=== PATIENT | female | born 1945 | race Caucasian/White ===

== ENCOUNTER 2017-07-15 12:15 | Inpatient (IN) | payer MEDICARE ==
[~2017-07-15] VITALS: Ht 152.4 cm; Wt 68.0 kg
[~2017-07-15 12:15] MED LIST: BLOO-1764 MC; BLOO-1775 MC; HYDR-4225 PO; INSU100I5 SQ; IPRA4AER IH; LANC-1295 XX; LEV125 PO; LISI20TA29 PO; LORA-630 PO; METF-420 PO; SERT-181 PO; SIMV-54 PO
[2017-07-15] MEDS ORDERED: methylPREDNIS SUCC 125 MG/2ML IVP ONE (12:30)
[2017-07-15] MEDS ORDERED: ALBUTEROL/IPRATROPIUM 3 ML NEB NEB ONE (12:30)
--- NOTE | 2017-07-15 12:51 | EKG ---
[place] [facility] [place] NAME: ADEN MELGAR : [id number] MR: [id number] V: [id number] EXAM DATE: ORDERING PHYSICIAN: BENNY HWANG TECHNOLOGIST: JUAN CARLOS Marshall Reason : RESP PROBLEMS Blood Pressure : / mmHG Vent. Rate : 088 BPM Atrial Rate : 088 BPM P-R Int : 150 ms QRS Dur : 074 ms QT Int : 410 ms P-R-T Axes : 062 043 061 degrees QTc Int : 496 ms Sinus rhythm with premature supraventricular complexes Possible Left atrial enlargement Anterior infarct , age undetermined Diffuse T flattening No previous ECGs available Confirmed by HILLARY SUTTON ([id number]) on 07/16/2017 10:10:21 PM Referred By: JAIDEN Confirmed By:HILLARY SUTTON
[2017-07-15 12:59] LABS: PLATELET COUNT, AUTOMATED 110 K/uL (150-450)
--- NOTE | 2017-07-15 13:20 | ER Report ---
History and Physical Time Seen By MD: 12:20 Hx. of Stated Complaint: PATIENT STATES THAT SHE HAS BEEN FEELING SHORT OF BREATH FOR A COUPLE WEEKS NOW ; PT'S SPO2 ON ROOM AIR WAS 83%; PATIENT WAS PLACED ON 3 LT OF OXYGEN. HPI/ROS CHIEF COMPLAINT: Shortness of breath HISTORY OF PRESENT ILLNESS: 72-year-old female long history of smoking multiple packs a day for the last 50+ years is does not use supplemental oxygen has an inhaler does not careful diagnosis COPD however last 2 or 3 weeks and getting worse and shortness of breath and exertional dyspnea still smoking daily patient has no chest pain at this time no abdominal pain nausea vomiting diarrhea fever chills nonproductive cough worse in the morning REVIEW OF SYSTEMS: Respiratory: Cough with shortness of breath Cardiovascular: No chest pain, no palpitations. Gastrointestinal: No vomiting, no abdominal pain. Musculoskeletal: No back pain. Remainder of the 14 system rev: Yes Allergies: Coded Allergies: No Known Drug Allergies (Unverified , 07/15/17) Home Meds Active Scripts Insulin Detemir (Levemir Flextouch) 100 Unit/1 Ml Insuln.pen, 14 UNIT SQ BID, # 3 BOX 11 Refills 14 units in am and pm Prov:SUE DAY MD 06/25/17 Levothyroxine Sodium (LEVOTHYROXINE SODIUM) 0.125 Mg Tab, 1 TAB PO QDAY, #90 TAB 11 Refills Prov:SUE DAY MD 06/25/17 Sertraline Hcl (SERTRALINE HCL) 100 Mg Tablet, 1 TAB PO QDAY, #90 TAB 1 Refill Prov:SUE DAY MD 04/24/17 Blood-Glucose Meter (FREESTYLE LITE METER) 1 Each Kit, EACH MC, #1 Prov:SUE DAY MD 04/09/17 Lancets (FREESTYLE LANCETS) 1 Each Each, EACH XX QDAY, #1 3 Refills Prov:SUE DAY MD 04/09/17 Blood Sugar Diagnostic (FREESTYLE TEST STRIPS) 1 Each Strip, 1 EACH MC QDAY for 90 Days, #100 STRIP 3 Refills Alternating time of day checking glucose. Prov:SUE DAY MD 04/09/17 Reported Medications Ipratropium/Albuterol Sulfate (COMBIVENT RESPIMAT INHAL SPRAY) 4 Gm Aer.w.adap, 1 EACH IH QID 04/09/17 Lisinopril (LISINOPRIL) 20 Mg Tablet, 1 TAB PO QDAY, TAB 04/09/17 Hydroxyzine Hcl (HYDROXYZINE HCL) 25 Mg Tablet, 1 TAB PO TID Y for ITCHING 04/09/17 Simvastatin (SIMVASTATIN) 40 Mg Tablet, 40 MG PO HS, TAB 04/09/17 Lorazepam (LORAZEPAM) 0.5 Mg Tablet, 1 TAB PO DAILY Y for ANXIETY 04/09/17 Metformin Hcl (METFORMIN HCL) 1,000 Mg Tablet, 1 TAB PO BID, TAB 04/09/17 Reviewed Nurses Notes: Yes Old Medical Records Reviewed: Yes Smoking Status: Current: Every Day Smoker Exposure to Second Hand Smoke?: Yes Constitutional Vital Sign - Last 24 Hours 07/15/17 07/15/17 07/15/17 07/15/17 12:19 12:23 12:30 12:30 Temp 97.6 Pulse 94 Resp 17 20 B/P (MAP) 187/109 (135) 187/109 163/98 (119) Pulse Ox 83 83 93 O2 Delivery Room Air Room Air Nasal Cannula O2 Flow Rate 2.0 07/15/17 07/15/17 07/15/17 07/15/17 12:30 12:43 12:48 13:00 Pulse 87 87 Resp 12 12 B/P (MAP) 157/92 (113) O2 Flow Rate 3.0 07/15/17 07/15/17 07/15/17 07/15/17 13:15 13:30 13:45 14:00 Pulse 87 83 Resp 16 13 B/P (MAP) 157/99 (118) 170/96 (120) Pulse Ox 95 95 O2 Delivery Nasal Cannula Nasal Cannula O2 Flow Rate 3 3 07/15/17 07/15/17 07/15/17 15:00 15:05 15:31 Pulse 88 Resp 21 B/P (MAP) 189/143 (158) 159/126 (137) Pulse Ox 95 Physical Exam General Appearance: [The patient is alert, has no immediate need for airway protection and no current signs of toxicity.] [ ] Eyes: Pupils equal and round no injection. Respiratory: Chest is non tender, lungs are clear to auscultation. Distant breath sounds Cardiac: regular rate and rhythm [ ] Gastrointestinal: Abdomen is soft and non tender, no masses, bowel sounds normal. Musculoskeletal: Neck: Neck is supple and non tender. Extremities have full range of motion and are non tender. Skin: No rashes or lesions. [ ] DIFFERENTIAL DIAGNOSIS: After history and physical exam differential diagnosis was considered for COPD exacerbation CHF exacerbation cardial infarction Polygram black Medical Decision Making Data Points Result Diagram: 07/15/17 1235 07/15/17 1235 Laboratory Hematology Test 07/15/17 12:35 07/15/17 12:54 Red Blood Count 4.46 M/uL (4.17-5.56) Mean Corpuscular Volume 79.0 fL (80.0-96.0) Mean Corpuscular Hemoglobin 25.4 pg (26.0-33.0) Mean Corpuscular Hemoglobin Concent 32.1 g/dL (32.0-36.0) Red Cell Distribution Width 17.7 % (11.5-14.5) Mean Platelet Volume 9.8 fL (7.2-11.1) Neutrophils (%) (Auto) 75.2 % (39.4-72.5) Lymphocytes (%) (Auto) 15.2 % (17.6-49.6) Monocytes (%) (Auto) 8.3 % (4.1-12.4) Eosinophils (%) (Auto) 0.7 % (0.4-6.7) Basophils (%) (Auto) 0.6 % (0.3-1.4) Nucleated RBC Relative Count (auto) 0.0 /100WBC Neutrophils # (Auto) 4.0 K/uL (2.0-7.4) Lymphocytes # (Auto) 0.8 K/uL (1.3-3.6) Monocytes # (Auto) 0.4 K/uL (0.3-1.0) Eosinophils # (Auto) 0.0 K/uL (0.0-0.5) Basophils # (Auto) 0.0 K/uL (0.0-0.1) Nucleated RBC Absolute Count (auto) 0.00 K/uL D-Dimer Quantitative (PE/DVT) 1.25 ug/ml (0-0.50) Sodium Level 141 mmol/L (137-145) Potassium Level 3.6 mmol/L (3.5-5.0) Chloride Level 106 mmol/L (98-107) Carbon Dioxide Level 23 mmol/L (22-31) Blood Urea Nitrogen 12 mg/dl (7-18) Creatinine 0.60 mg/dl (0.52-1.04) Glomerular Filtration Rate Calc > 60.0 Random Glucose 131 mg/dl (75-110) Calcium Level 8.8 mg/dl (8.4-10.2) Total Bilirubin 0.9 mg/dl (0.2-1.3) Aspartate Amino Transf (AST/SGOT) 35 U/L (0-35) Alanine Aminotransferase (ALT/SGPT) 43 U/L (0-56) Alkaline Phosphatase 97 U/L (0-126) Troponin I 0.016 ng/ml B-Type Natriuretic Peptide 361 pg/ml (0-100) Total Protein 6.7 gm/dl (6.3-8.2) Albumin 3.7 g/dl (3.5-5.0) Blood Gas Puncture Site Right radial Blood Gas Patient Temperature 97.6 DEGREES Arterial Blood pH 7.42 (7.35-7.45) Arterial Blood Partial Pressure CO2 34 mmHg (32-37) Arterial Blood Partial Pressure O2 67 mmHg (60-80) Arterial Blood HCO3 22 mmol/L (20-26) Arterial Blood Oxygen Saturation 94 % (92-100) Arterial Blood Base Excess -3.0 mmol/L Solitario Test Acceptable Oxygen Liters/Minute 3liters Chemistry Test 07/15/17 12:35 07/15/17 12:54 White Blood Count 5.4 k/uL (4.5-11.0) Red Blood Count 4.46 M/uL (4.17-5.56) Hemoglobin 11.3 g/dL (12.0-16.0) Hematocrit 35.2 % (34.0-47.0) Mean Corpuscular Volume 79.0 fL (80.0-96.0) Mean Corpuscular Hemoglobin 25.4 pg (26.0-33.0) Mean Corpuscular Hemoglobin Concent 32.1 g/dL (32.0-36.0) Red Cell Distribution Width 17.7 % (11.5-14.5) Platelet Count 110 K/uL (150-450) Mean Platelet Volume 9.8 fL (7.2-11.1) Neutrophils (%) (Auto) 75.2 % (39.4-72.5) Lymphocytes (%) (Auto) 15.2 % (17.6-49.6) Monocytes (%) (Auto) 8.3 % (4.1-12.4) Eosinophils (%) (Auto) 0.7 % (0.4-6.7) Basophils (%) (Auto) 0.6 % (0.3-1.4) Nucleated RBC Relative Count (auto) 0.0 /100WBC Neutrophils # (Auto) 4.0 K/uL (2.0-7.4) Lymphocytes # (Auto) 0.8 K/uL (1.3-3.6) Monocytes # (Auto) 0.4 K/uL (0.3-1.0) Eosinophils # (Auto) 0.0 K/uL (0.0-0.5) Basophils # (Auto) 0.0 K/uL (0.0-0.1) Nucleated RBC Absolute Count (auto) 0.00 K/uL D-Dimer Quantitative (PE/DVT) 1.25 ug/ml (0-0.50) Glomerular Filtration Rate Calc > 60.0 Calcium Level 8.8 mg/dl (8.4-10.2) Total Bilirubin 0.9 mg/dl (0.2-1.3) Aspartate Amino Transf (AST/SGOT) 35 U/L (0-35) Alanine Aminotransferase (ALT/SGPT) 43 U/L (0-56) Alkaline Phosphatase 97 U/L (0-126) Troponin I 0.016 ng/ml B-Type Natriuretic Peptide 361 pg/ml (0-100) Total Protein 6.7 gm/dl (6.3-8.2) Albumin 3.7 g/dl (3.5-5.0) Blood Gas Puncture Site Right radial Blood Gas Patient Temperature 97.6 DEGREES Arterial Blood pH 7.42 (7.35-7.45) Arterial Blood Partial Pressure CO2 34 mmHg (32-37) Arterial Blood Partial Pressure O2 67 mmHg (60-80) Arterial Blood HCO3 22 mmol/L (20-26) Arterial Blood Oxygen Saturation 94 % (92-100) Arterial Blood Base Excess -3.0 mmol/L Solitario Test Acceptable Oxygen Liters/Minute 3liters Coagulation Test 07/15/17 12:35 D-Dimer Quantitative (PE/DVT) 1.25 ug/ml ED Course/Re-evaluation ED Course ED clinical course medical decision-making 9-year-old female history of a 60+ pack year smoker comes in with an obvious COPD exacerbation however elevated d- dimer and CT angiogram subsequent demonstrated pulmonary 2 hypertension diagnosis is well as central lobular emphysema and a new right lower lobe developing infiltrate atelectasis pulmonary edema patient be admitted accordingly Decision to Disposition Date: Jul 15, 2017 Decision to Disposition Time: 15:44 Depart Departure Latest Vital Signs Vital Signs Date Time Temp Pulse Resp B/P (MAP) Pulse Ox O2 Delivery O2 Flow Rate FiO2 07/15/17 15:31 159/126 (137) 07/15/17 15:05 88 21 95 07/15/17 13:45 Nasal Cannula 3 07/15/17 12:23 97.6 Impression: Primary Impression: Pulmonary arterial hypertension Additional Impressions: Emphysema Pneumonia Condition: Improved Disposition: Admitted from ER Referrals: SUE DAY MD (PCP) Problem Qualifiers BENNY HWANG MD Jul 15, 2017 13:20
[2017-07-15] MEDS ORDERED: IOPAMIDOL 76% 75 ML INFUS BTL 75 ML ONE (13:43)
[2017-07-15] MEDS ORDERED: NS 0.9% 50 ML VIAL 100 ML ONE (13:43)
--- NOTE | 2017-07-15 14:45 | RADIOLOGY IMAGING REPORT ---
FACILITY: [facility] PATIENT NAME: Anneliese Magana : 1945 MR: [id number] V: [id number] EXAM DATE: ORDERING PHYSICIAN: BENNY HWANG TECHNOLOGIST: Location: [facility] - [place] Patient: Anneliese Magana : 1945 Visit/Account:[id number] Date of Sevice: 07/15/2017 Exam type: CHEST PA AND LAT History: sob Comparison: None. Findings: The cardiac silhouette is markedly enlarged. This blunting of the right costophrenic angle which may be secondary to small right pleural effusion versus pleural thickening. This platelike atelectasis versus scarring in the lung bases. The pulmonary vascularity appears engorged. This osteopenia the visualized bones. IMPRESSION: 1. Cardiac silhouette is markedly enlarged Blunted right costophrenic angle consistent with small pleural effusion versus pleural thickening Platelike atelectasis versus scarring in the lung bases Pulmonary vascularity appears engorged concerning for pulmonary edema Report Dictated By: Felecia Hunt MD at 07/15/2017 2:38 PM Report E-Signed By: Felecia Hunt MD at 07/15/2017 2:41 PM WSN:[email or web address]
--- NOTE | 2017-07-15 15:08 | RADIOLOGY IMAGING REPORT ---
FACILITY: [facility] - [place] PATIENT NAME: Anneliese Magana : 1945 MR: [id number] V: [id number] EXAM DATE: ORDERING PHYSICIAN: BENNY HWANG TECHNOLOGIST: Location: [facility] Patient: Anneliese Magana : 1945 Visit/Account:[id number] Date of Sevice: 07/15/2017 CTA CHEST WW/O CNTR (PULM ANG) HISTORY: Shortness of breath x2 weeks, cough, current one pack per day smoker ADDITIONAL HISTORY: None. TECHNIQUE: CTA chest with intravenous contrast. Axial imaging acquired following administration of IV contrast timed for maximum opacification of the pulmonary arterial vasculature. Slab 3-D MIP ok nstructed images were also created for further evaluation and interpretation. Reconstruction of the [facility] [place] data set includes multiplanar 2-D in the sagittal and coronal planes and 3-D reconstructed gillian nal slab MIP series. 3-D images were created by the technologist. Dose Lowering Technique One of the following dose optimization techniques was utilized in the performance of this exam: Autom ated exposure control; adjustment of the mA and/or kV according to the patient's size; or use of an i terative reconstruction technique. Specific details can be referenced in the facility's radiology C T exam operational policy. CONTRAST: 75 mL Isovue-370 COMPARISON: None. FINDINGS: Lungs/pleura: There is centrilobular emphysema with an upper lobe predominance. There is a small po sterior layering right pleural effusion and adjacent airspace consolidation in the right lower lobe. Very mild linear stranding in the left lower lobe is also evident. Heart/vessels: There is no evidence of pulmonary emboli. The pulmonary trunk and main pulmonary art eries are mildly prominent. There is a small pericardial effusion. There are vascular calcification s in the thoracic aorta and branch vessels including the coronary arteries. Mediastinum/lymph nodes: Negative. Visualized upper abdomen: There is a lobular contour to the liver and hypertrophy of the caudate lob e which can be seen with cirrhosis. There is mild periportal adenopathy. A inside sales representative node hamilton ures 1.6 x 1.1 cm Bones/soft tissues: There is a mild to moderate compression fracture of T4 Additional findings: None IMPRESSION: There is no evidence of pulmonary emboli Central pulmonary arteries appear mildly prominent which can be seen with pulmonary arterial hyperten bhavani Small pericardial effusion Centrilobular emphysema with an upper lobe predominance Small posterior layering right pleural effusion with adjacent airspace consolidation of the right low er lobe which could represent atelectasis or developing infiltrate. Very mild linear stranding left lower lobe is also evident There is a cirrhotic appearance to the liver Mild periportal adenopathy Mild to moderate compression fracture of T4 Report Dictated By: Felecia Hunt MD at 07/15/2017 2:52 PM Report E-Signed By: Felecia Hunt MD at 07/15/2017 3:03 PM BRYN:[email or web address]
[2017-07-15] MEDS ORDERED: cloNIDine HCL 0.1 MG TAB PO ONE (15:30)
[2017-07-15] MEDS ORDERED: LEVOFLOXACIN/D5W*500 MG/100 ML 100 ML IVPB ONE (15:30)
[2017-07-15 17:24] VITALS: BP 171/96
[2017-07-15] MEDS ORDERED: ALBUTEROL/IPRATROPIUM 3 ML NEB NEB PRN (17:55)
[2017-07-15] MEDS ORDERED: ONDANSETRON 4 MG/2 ML VIAL IVP PRN (17:55)
[2017-07-15] MEDS ORDERED: ALBUTEROL SULFATE 90 MCG/ACT 8.5 GM HNH INH PRN (17:55)
[2017-07-15] MEDS ORDERED: ACETAMINOPHEN 325 MG TAB PO PRN (17:55)
[2017-07-15] MEDS ORDERED: hydrOXYzine 25 MG TAB PO PRN (17:55)
[2017-07-15] MEDS: NS(*) 0.9% 1000 ML BAG 1,000 ML IV PRN (18:35)
--- NOTE | 2017-07-15 18:52 | History & Physical ---
History of Present Illness Chief Complaint gradual worsening of dyspnea over few weeks and presented with acute SOB History of Present Illness Mrs. Magana is a 72 y.o. female with PMH of HTN, DM-II, Dyslipidemia, Hypothyroidism, Depression and long standing h/o smoking 1-2 PPD over 50 years, She currently smokes 1ppd. She has been having VALLEJO and today she presented with acute exacerbation of dyspnea with low oxygen saturation. During the ER evaluation she found to have low oxygen saturation 83% and she was in acute exacerbation of COPD. Her CTA revealed chronic emphysematic changes of the lungs but negative for APE. She also demonstrated pulmonary arterial hypertension. RLL revealed early infiltrates vs atelectasis. She denies any cough, hemoptysis, fever and no WBC on her CBC test. I discussed the case with the ER-MD and admitted her for further evaluation and management. History Home Meds Active Scripts Insulin Detemir (Levemir Flextouch) 100 Unit/1 Ml Insuln.pen, 14 UNIT SQ BID, # 3 BOX 11 Refills 14 units in am and pm Prov:SUE DAY MD 06/25/17 Levothyroxine Sodium (LEVOTHYROXINE SODIUM) 0.125 Mg Tab, 1 TAB PO QDAY, #90 TAB 11 Refills Prov:SUE DAY MD 06/25/17 Sertraline Hcl (SERTRALINE HCL) 100 Mg Tablet, 1 TAB PO QDAY, #90 TAB 1 Refill Prov:SUE DAY MD 04/24/17 Blood-Glucose Meter (FREESTYLE LITE METER) 1 Each Kit, EACH MC, #1 Prov:SUE DAY MD 04/09/17 Lancets (FREESTYLE LANCETS) 1 Each Each, EACH XX QDAY, #1 3 Refills Prov:SUE DAY MD 04/09/17 Blood Sugar Diagnostic (FREESTYLE TEST STRIPS) 1 Each Strip, 1 EACH MC QDAY for 90 Days, #100 STRIP 3 Refills Alternating time of day checking glucose. Prov:SUE DAY MD 04/09/17 Reported Medications Ipratropium/Albuterol Sulfate (COMBIVENT RESPIMAT INHAL SPRAY) 4 Gm Aer.w.adap, 1 EACH IH QID 04/09/17 Lisinopril (LISINOPRIL) 20 Mg Tablet, 1 TAB PO QDAY, TAB 9/21/17 Hydroxyzine Hcl (HYDROXYZINE HCL) 25 Mg Tablet, 1 TAB PO TID Y for ITCHING 04/09/17 Simvastatin (SIMVASTATIN) 40 Mg Tablet, 40 MG PO HS, TAB 04/09/17 Lorazepam (LORAZEPAM) 0.5 Mg Tablet, 1 TAB PO DAILY Y for ANXIETY 04/09/17 Metformin Hcl (METFORMIN HCL) 1,000 Mg Tablet, 1 TAB PO BID, TAB 04/09/17 Allergies: Coded Allergies: No Known Drug Allergies (Unverified , 07/15/17) Patient History: FH: Alzheimers disease MOTHER, , Age:83 FH: COPD (chronic obstructive pulmonary disease) BROTHER OR SISTER Sister FH: cancer Sister, , Age:60 (diffusely metastisized) FH: diabetes mellitus MOTHER, , Age:83 Sister, Age:50 FH: hypertension Brother, , Age:69 FH: lung cancer FATHER, , Age:74 FHx: alcoholism FATHER, , Age:74 Brother, , Age:69 Smoking Status: Current: Every Day Smoker Exposure to Second Hand Smoke?: Yes Caffeine Intake: Coffee Caffeine/Cups Per Day: 3 Hx Alcohol Use: No Social Drug Use: Never Review of Systems Constitutional: No Fever, No Weight Loss, No Weight Gain, No Chills, No Night Sweats Neurological: Weakness, No Syncope, No Confusion, No Dizziness ENT: No Sinus Congestion, No Sore Throat Cardiovascular: No Chest Pain, No Palpitations Respiratory: Shortness of Breath, Cough, Wheezing (few rales at the bases and low air entry) Gastrointestinal: No Nausea, No Vomiting, No Diarrhea, No Dysphagia, No Constipation, No Hematemesis, No Abdominal Pain Genitourinary: No Dysuria, No Hematuria Musculoskeletal: No Pain, No Sprain, No Strain Psychiatric: No Depression, No Anxiety Exam Vital Signs Vital Signs Date Time Temp Pulse Resp B/P (MAP) Pulse Ox O2 Delivery O2 Flow Rate FiO2 07/15/17 17:28 92 Nasal Cannula 2.0 07/15/17 17:24 98.4 87 16 171/96 (121) General Appearance: Alert, Awake, No Acute Distress, Afebrile Neuro: No Gross deficits Eyes: PERRLA ENT: Normal Cardiovascular: Normal Rhythm & Peripheral Pulses Respiratory: Other (bilateral low air entry, positive rhonchi and few wheezes and RLL rales) Chest: No Masses GI: Abd Soft and Non-Tender Extremities: Soft and Non Tender Integumentary: Skin Intact without Lesion / Mass Psych: Alert & Oriented X3, Appropriate Mood & Affect Medical Decision Making Data Points Result Diagram: 07/15/17 1235 07/15/17 1235 Reviewed EKG / Imaging Imaging Reviewed Pre-Admit Course ED Medications Reviewed Medical Record Review: Yes Assessment and Plan Problems: (1) Acute exacerbation of chronic obstructive pulmonary disease (COPD) Status: Acute Assessment & Plan: Mrs. Magana is a 72 y.o. female with PMH of HTN, DM-II, Dyslipidemia, Hypothyroidism, Depression and long standing h/o smoking 1-2 PPD over 50 years, She currently smokes 1ppd. She has been having VALLJEO and today she presented with acute exacerbation of dyspnea with low oxygen saturation. During the ER evaluation she found to have low oxygen saturation 83% and she was in acute exacerbation of COPD. Her CTA revealed chronic emphysematic changes of the lungs but negative for APE. She also demonstrated pulmonary arterial hypertension. RLL revealed early infiltrates vs atelectasis. She denies any cough, hemoptysis, fever and no WBC on her CBC test. I discussed the case with the ER-MD and admitted her for further evaluation and management. 07/15: Plan I will start Nebulizer, Duoneb, treatments q 4h and Albuterol nebs 1 unit dose q 2-4 hours as needed. I will also start Rocephin 1 gm IV q daily. I will give her Solumedrol 125mg IVPB one dose today and then 60mg IV bid from am. I will repeat her CXR in 24-48 hours. I will repeat her labs in am. (2) RLL pneumonia Status: Acute Assessment & Plan: I will start Rocephin for her possible pneumonia and I will also start IVF NS at 125ml/h. I will repeat her CBC in am (3) Pulmonary arterial hypertension Status: Chronic Assessment & Plan: I will manage her acute exacerbation of COPD and PAH can be managed by flap maker as out patient once she gets d/c'd (4) Type II diabetes mellitus Status: Chronic Assessment & Plan: I will order for her accuchecks q AC and HS and cover with Humolog per moderate sliding scale. I will resume her Metformin 1 gm bid, and Levemir 14 units q 12 hours before meals. I will manage her other medical issues accordingly during this hospitalization and resume her home medications. I will increase her Lisinopril to 20mg po bid for uncontrolled HTN. Central Venous Access Medical Necessity for Access: IV Access, Medication Administration Condition Guarded Time Spent on Plan of Care: > 30 min Copies to: SUE DAY MD Venous Thromboembolism VTE Risk Physician Assess for VTE Risk: Yes Patient's VTE Risk: Low VTE Diagnostic Test 2 Days Prior to Admit: No Antithrombotics Is Pt On Any Antithrombotics?: No Exam Sepsis Risk: No Definite Risk TAD MODI MD Jul 15, 2017 18:52
[2017-07-15 19:07] VITALS: BP 134/78
[2017-07-15] MEDS: LORazepam 1 MG TAB PO SCH (20:40)
[2017-07-15] MEDS: LISINOPRIL 20 MG TAB PO SCH (20:40)
[2017-07-15] MEDS: methylPREDNIS SUCC 125 MG/2ML IVP SCH (20:40)
[2017-07-15] MEDS: DOCUSATE SODIUM 100 MG CAP PO SCH (20:41)
[2017-07-15] MEDS: SIMVASTATIN 40 MG TAB PO SCH (20:41)
[2017-07-15] MEDS: INSULIN DETEMIR 100 U/ML 3 ML PEN SUBQ SCH (20:42)
[2017-07-15] MEDS: INSULIN HUM LISPRO 100 UN/ML 3 ML VIAL SUBQ PRN (20:47)
[2017-07-15 23:19] VITALS: BP 135/81
[2017-07-16] VITALS (7 sets, daily range): BP systolic 142–210; BP diastolic 73–109; Ht 152.4 cm; Wt 68.0 kg
[2017-07-16] MEDS: LEVOTHYROXINE SOD 0.125 MG TAB PO SCH (05:28)
[2017-07-16] MEDS: NS(*) 0.9% 1000 ML BAG 1,000 ML IV PRN (05:28)
[2017-07-16 05:43] LABS: PLATELET COUNT, AUTOMATED 121 K/uL (150-450)
[2017-07-16] MEDS: INSULIN HUM LISPRO 100 UN/ML 3 ML VIAL SUBQ PRN ×4 (07:59→21:30)
[2017-07-16] MEDS ORDERED: metFORMIN HCL 500 MG TAB PO SCH (08:00)
[2017-07-16] MEDS: ENOXAPARIN 40 MG/0.4ML SYR SC SCH (08:50)
[2017-07-16] MEDS: DOCUSATE SODIUM 100 MG CAP PO SCH ×2 (08:50→21:21)
[2017-07-16] MEDS: methylPREDNIS SUCC 125 MG/2ML IVP SCH (08:50)
[2017-07-16] MEDS: SERTRALINE HCL 50 MG TAB PO SCH (08:50)
[2017-07-16] MEDS: LISINOPRIL 20 MG TAB PO SCH ×2 (08:51→21:21)
[2017-07-16] MEDS: INSULIN DETEMIR 100 U/ML 3 ML PEN SUBQ SCH ×2 (08:51→21:23)
[2017-07-16] MEDS ORDERED: cefTRIAXone 1 GM VIAL IVP SCH (09:00)
[2017-07-16] MEDS ORDERED: cefTRIAXone(*) 1 GM VIAL 1 GM in NS(*) 0.9% 100 ML ADDVANT BAG 100 ML IVPB SCH (09:00)
[2017-07-16] MEDS: predniSONE 20 MG TAB PO SCH (16:48)
--- NOTE | 2017-07-16 17:04 | Hospitalist Progress Note ---
Subjective Progress Notes Subjective Overall feeling better. She is not quite to her baseline. Physical Exam Vital Signs Date Time Temp Pulse Resp B/P (MAP) Pulse Ox O2 Delivery O2 Flow Rate FiO2 07/16/17 14:45 97.8 86 18 150/73 (98) 91 Nasal Cannula 2.0 Intake and Output 07/17/17 07:00 Intake Total 480 ml Balance 480 ml Intake Oral 480 ml # Voids 2 General Appearance: Alert, Awake, No Acute Distress Cardiovascular: Regular Rate and Rhythm Respiratory: Clear to Auscultation Result Diagram: 07/16/1753207/16/17532 Assessment and Plan Problems: (1) Acute exacerbation of chronic obstructive pulmonary disease (COPD) Status: Acute Assessment & Plan: Mrs. Magana is a 72 y.o. female with PMH of HTN, DM-II, Dyslipidemia, Hypothyroidism, Depression and long standing h/o smoking 1-2 PPD over 50 years, She currently smokes 1ppd. She has been having VALLEJO and today she presented with acute exacerbation of dyspnea with low oxygen saturation. During the ER evaluation she found to have low oxygen saturation 83% and she was in acute exacerbation of COPD. Her CTA revealed chronic emphysematic changes of the lungs but negative for APE. She also demonstrated pulmonary arterial hypertension. RLL revealed early infiltrates vs atelectasis. She denies any cough, hemoptysis, fever and no WBC on her CBC test. I discussed the case with the ER-MD and admitted her for further evaluation and management. 07/15: Plan I will start Nebulizer, Duoneb, treatments q 4h and Albuterol nebs 1 unit dose q 2-4 hours as needed. I will also start Rocephin 1 gm IV q daily. I will give her Solumedrol 125mg IVPB one dose today and then 60mg IV bid from am. I will repeat her CXR in 24-48 hours. I will repeat her labs in am. 07/16: Not wheezy. Switched to oral prednisone and Omnicef. Still requiring O2 and will likely need to go home on it. (2) RLL pneumonia Status: Acute Assessment & Plan: I will start Rocephin for her possible pneumonia and I will also start IVF NS at 125ml/h. I will repeat her CBC in am 07/16: See above. BP/P stable. Afebrile. (3) Pulmonary arterial hypertension Status: Chronic Assessment & Plan: I will manage her acute exacerbation of COPD and PAH can be managed by sawmilling operator as out patient once she gets d/c'd (4) Type II diabetes mellitus Status: Chronic Assessment & Plan: I will order for her accuchecks q AC and HS and cover with Humolog per moderate sliding scale. I will resume her Metformin 1 gm bid, and Levemir 14 units q 12 hours before meals. I will manage her other medical issues accordingly during this hospitalization and resume her home medications. I will increase her Lisinopril to 20mg po bid for uncontrolled HTN. 07/16: Glucose ranging from 159-237. Continue current treatment. Central Venous Access Medical Necessity for Access: IV Access, Medication Administration Exam Sepsis Risk: No Definite Risk HILLARY SUTTON MD Jul 16, 2017 17:04
[2017-07-16] MEDS: LORazepam 1 MG TAB PO SCH (21:00)
[2017-07-16] MEDS: SIMVASTATIN 40 MG TAB PO SCH (21:21)
[2017-07-16] MEDS: CEFDINIR 300 MG CAP PO SCH (21:21)
[2017-07-17 03:16] VITALS: BP 160/101
[2017-07-17] MEDS: LEVOTHYROXINE SOD 0.125 MG TAB PO SCH (05:36)
[2017-07-17 06:05] VITALS: BP 161/99
[2017-07-17 06:07] VITALS: BP 166/95
[2017-07-17 07:19] VITALS: BP 178/109
[2017-07-17] MEDS: predniSONE 20 MG TAB PO SCH (07:20)
[2017-07-17] MEDS ORDERED: PRED20TA6 PO (08:14)
[2017-07-17] MEDS ORDERED: HYDR-2966 PO (08:14)
[2017-07-17] MEDS ORDERED: LISI20TA29 PO (08:14)
[2017-07-17] MEDS ORDERED: ALBU8.5H INH (08:14)
[2017-07-17] MEDS ORDERED: metFORMIN HCL 500 MG TAB PO SCH (08:20)
[2017-07-17] MEDS ORDERED: CEF300 PO (08:22)
--- NOTE | 2017-07-17 08:38 | Hospitalist Depart ---
Discharge Summary Reason for Hosp/Final Diag: (1) Acute exacerbation of chronic obstructive pulmonary disease (COPD) Status: Acute Hospital Course & Plan: She presented with progressive dyspnea. Long standing h/o smoking 1-2 PPD over 50 years. She currently smokes 1ppd. She was started on nebs and methylprednisolone. She improved quickly. She still has an O2 requirement and likely has one at baseline. She will go home on O2. She has been advised to stop smoking. She will go home on a steroid taper, Combivent and prn Albuterol. (2) RLL pneumonia Status: Acute Hospital Course & Plan: She presented with progressive dyspnea over a couple of weeks. She was hypoxic in the ER. CTA of the chest showed an early infiltrate. She has had a normal WBC and has been afebrile. She was started on Rocephin and switched to Omnicef. Will have her take a total of 5 days of antibiotics. (3) Microcytic anemia Status: Acute Hospital Course & Plan: This appears new since March. Her Hbg is stable. There is no evidence of bleeding. She also has a borderline low platelet count. This could be related to acute illness, but should be followed. Will have her repeat it in 5-7 days and have the results go to her PCP. (4) Elevated brain natriuretic peptide (BNP) level Status: Acute Hospital Course & Plan: This could be secondary to acute hypoxia and COPD exacerbation. No evidence of heart failure exacerbation by symptoms or exam. Will repeat in 5-7 days. (5) HTN (hypertension) Status: Chronic Hospital Course & Plan: BP elevated in the hospital despite increasing Lisinopril from 20mg a day to bid. No cp/headache. Will add HCTZ and have her follow it closely. Certainly, steroids are contributing. She is to get a BMP in a 5-7 days and follow up with her PCP in 1-2 weeks. She will check it at home and has been parameters to follow it. (6) Type II diabetes mellitus Status: Chronic Hospital Course & Plan: Glucose elevated secondary to steroids, but stable (127 -254). She is to continue her Metformin and Lantus. Departure Weight (Pounds): 150 Result Diagram: 07/16/1733 07/16/17532 Item Value Date Time Troponin I 0.016 ng/ml 07/15/17 1235 B-Type Natriuretic Peptide 361 pg/ml H 07/15/17 1235 Total Bilirubin 0.9 mg/dl 07/15/17 1235 Aspartate Amino Transf (AST/SGOT) 35 U/L 07/15/17 1235 Alanine Aminotransferase (ALT/SGPT) 43 U/L 07/15/17 1235 Alkaline Phosphatase 97 U/L 07/15/17 1235 Hemoglobin 11.3 g/dL L 07/15/17 1235 Hemoglobin 11.4 g/dL L 07/16/17 0533 Mean Corpuscular Volume 79.0 fL L 07/15/17 1235 Mean Corpuscular Volume 79.2 fL L 07/16/17 0533 Platelet Count 110 K/uL L 07/15/17 1235 Platelet Count 121 K/uL L 07/16/17 0533 B-Type Natriuretic Peptide 370 pg/ml H 07/16/17 0533 D-Dimer Quantitative (PE/DVT) 1.25 ug/ml H 07/15/17 1235 Arterial Blood pH 7.42 07/15/17 1254 Arterial Blood Partial Pressure CO2 34 mmHg 07/15/17 1254 Arterial Blood Partial Pressure O2 67 mmHg 07/15/17 1254 Arterial Blood HCO3 22 mmol/L 07/15/17 1254 Random Glucose 151 mg/dl H 07/16/17 0533 Whole Blood Glucose 390 mg/DL H 07/15/17 2043 Random Glucose 131 mg/dl H 07/15/17 1235 Hemoglobin 12.9 g/dL 04/14/17 0908 Mean Corpuscular Volume 88 fL 04/14/17 0908 No growth from blood cultures. Imaging CTA of chest - There is no evidence of pulmonary emboli Central pulmonary arteries appear mildly prominent which can be seen with pulmonary arterial hypertension Small pericardial effusion Centrilobular emphysema with an upper lobe predominance Small posterior layering right pleural effusion with adjacent airspace consolidation of the right lower lobe which could represent atelectasis or developing infiltrate. Very mild linear stranding left lower lobe is also evident There is a cirrhotic appearance to the liver Mild periportal adenopathy Mild to moderate compression fracture of T4 CXR - 1. Cardiac silhouette is markedly enlarged Blunted right costophrenic angle consistent with small pleural effusion versus pleural thickening Platelike atelectasis versus scarring in the lung bases Pulmonary vascularity appears engorged concerning for pulmonary edema EKG Vent. Rate : 088 BPM Atrial Rate : 088 BPM P-R Int : 150 ms QRS Dur : 074 ms QT Int : 410 ms P-R-T Axes : 062 043 061 degrees QTc Int : 496 ms Sinus rhythm with premature supraventricular complexes Possible Left atrial enlargement Anterior infarct , age undetermined Diffuse T flattening No previous ECGs available Confirmed by HILLARY SUTTON ([id number]) on 07/16/2017 10:10:21 PM Condition: Improved Discharge: Home Discharge Instructions Home Meds Active Scripts Cefdinir 300 Mg Cap (OMNICEF 300 MG CAP (OR EQUIV)) 300 Mg Cap, 300 MG PO BID, # 7 CAP Prov:HILLARY SUTTON MD 07/17/17 Hydrochlorothiazide (HYDROCHLOROTHIAZIDE) 25 Mg Tablet, 12.5 MG PO QDAY, #30 Prov:HILLARY SUTTON MD 07/17/17 Prednisone (PREDNISONE) 20 Mg Tablet, 20 MG PO DAILY, #3 1 pill a day for 2 days, then 1/2 pill a day for 2 days Prov:HILLARY SUTTON MD 07/17/17 Lisinopril (LISINOPRIL) 20 Mg Tablet, 20 MG PO BID, #60 Prov:HILLARY SUTTON MD 07/17/17 Albuterol Sulfate 90 Mcg/Act (PROAIR HFA 90 MCG/ACT) 8.5 Gm Hfa.aer.ad, 0 GM INH Q4H Y for Dyspnea, #1 Prov:HILLARY SUTTON MD 07/17/17 Insulin Detemir (Levemir Flextouch) 100 Unit/1 Ml Insuln.pen, 14 UNIT SQ BID, # 3 BOX 11 Refills 14 units in am and pm Prov:SUE DAY MD 06/25/17 Levothyroxine Sodium (LEVOTHYROXINE SODIUM) 0.125 Mg Tab, 1 TAB PO QDAY, #90 TAB 11 Refills Prov:SUE DAY MD 06/25/17 Sertraline Hcl (SERTRALINE HCL) 100 Mg Tablet, 1 TAB PO QDAY, #90 TAB 1 Refill Prov:SUE DAY MD 04/24/17 Blood-Glucose Meter (FREESTYLE LITE METER) 1 Each Kit, EACH MC, #1 Prov:SUE DAY MD 04/09/17 Lancets (FREESTYLE LANCETS) 1 Each Each, EACH XX QDAY, #1 3 Refills Prov:SUE DAY MD 04/09/17 Blood Sugar Diagnostic (FREESTYLE TEST STRIPS) 1 Each Strip, 1 EACH MC QDAY for 90 Days, #100 STRIP 3 Refills Alternating time of day checking glucose. Prov:SUE DAY MD 04/09/17 Reported Medications Ipratropium/Albuterol Sulfate (COMBIVENT RESPIMAT INHAL SPRAY) 4 Gm Aer.w.adap, 1 EACH IH QID 04/09/17 Hydroxyzine Hcl (HYDROXYZINE HCL) 25 Mg Tablet, 1 TAB PO TID Y for ITCHING 04/09/17 Simvastatin (SIMVASTATIN) 40 Mg Tablet, 40 MG PO HS, TAB 04/09/17 Lorazepam (LORAZEPAM) 0.5 Mg Tablet, 1 TAB PO DAILY Y for ANXIETY 04/09/17 Metformin Hcl (METFORMIN HCL) 1,000 Mg Tablet, 1 TAB PO BID, TAB 04/09/17 Discontinued Reported Medications Lisinopril (LISINOPRIL) 20 Mg Tablet, 1 TAB PO QDAY, TAB 04/09/17 Diet: Diabetic Activity: As Tolerated Special Instructions: Stop Smoking Call your PCP for SBP consistently >180 or <120, or glucoses consistently >300 or <100. Go to the ER for glucoses >400 or <60 BMP/CBC/BNP in 5-7 days Follow up with your PCP in 1-2 weeks. Copies to: SUE DAY MD Venous Thromboembolism Antithrombotics Is Pt On Any Antithrombotics?: No HILLARY SUTTON MD Jul 17, 2017 08:38
[2017-07-17] MEDS: CEFDINIR 300 MG CAP PO SCH (08:49)
[2017-07-17] MEDS: DOCUSATE SODIUM 100 MG CAP PO SCH (08:49)
[2017-07-17] MEDS: SERTRALINE HCL 50 MG TAB PO SCH (08:49)
[2017-07-17] MEDS: LISINOPRIL 20 MG TAB PO SCH (08:50)
[2017-07-17] MEDS: ENOXAPARIN 40 MG/0.4ML SYR SC SCH (08:50)
[2017-07-17] MEDS: INSULIN DETEMIR 100 U/ML 3 ML PEN SUBQ SCH (08:51)
[2017-07-17] MEDS ORDERED: predniSONE 20 MG TAB PO SCH (09:00)
[2017-07-17] MEDS ORDERED: HYDROCHLOROTHIAZIDE 25 MG TAB PO SCH (09:00)
[2017-07-17] MEDS ORDERED: INFLUENZA VIRUS VAC 0.5 ML SYR IM ONLY ONE (09:50)
== END 2017-07-17 10:20 | disposition home or self-care (01) | DRG 190 ==
LOC: ER 12:19 → MED 16:00
PROVIDERS: ADMIT Specialist; ATTEND Specialist
DX: J44.0 Chronic obstructive pulmonary disease with (acute) lower respiratory infection (principal); J18.1 Lobar pneumonia, unspecified organism; J44.1 Chronic obstructive pulmonary disease with (acute) exacerbation; I27.21 Secondary pulmonary arterial hypertension; R09.02 Hypoxemia; F17.210 Nicotine dependence, cigarettes, uncomplicated; D50.9 Iron deficiency anemia, unspecified; I10 Essential (primary) hypertension; E11.9 Type 2 diabetes mellitus without complications; E78.5 Hyperlipidemia, unspecified; E03.9 Hypothyroidism, unspecified; F32.9 Major depressive disorder, single episode, unspecified; Z79.4 Long term (current) use of insulin; Z90.710 Acquired absence of both cervix and uterus; Z23 Encounter for immunization
CPT/HCPCS: 36415; 36416; 36600; 71020; 71275; 82040; 82247; 82310; 82374; 82435; 82565; 82803; 82947; 82948; 83880; 84075; 84132; 84155; 84295; 84450; 84460; 84484; 84520; 85025; 85379; 87040; 90471; 90674; 93005; 94640; 96374; 99285; J0696; J1650; J1815; J1956; J2930; J7030; J7050; J7512; Q9967

== ENCOUNTER 2017-07-16 16:25 | Outpatient (RCR) | payer MEDICARE ==
[2017-07-16 12:59] VITALS: BMI 29.3
[2017-07-17] MEDS ORDERED: LISI20TA29 PO (08:14)
[2017-07-17] MEDS ORDERED: PRED20TA6 PO (08:14)
[2017-07-17] MEDS ORDERED: HYDR-2966 PO (08:14)
[2017-07-17] MEDS ORDERED: ALBU8.5H INH (08:14)
[2017-07-17] MEDS ORDERED: CEF300 PO (08:22)
--- NOTE | 2017-07-18 17:15 | Transitional Care Management ---
TCM Discharge Criteria Transitional Care Comment: 07/16 review quit smoking, COPD, pneumonia, prednisone taper, O2 at home, nicotene replacement therapy, getting a flu shot before dc. 07/18 Unable to contact-left message KEVIN MONK Jul 18, 2017 17:15
--- NOTE | 2017-07-21 19:22 | Transitional Care Management ---
Assessment Visit Type: Telephone Visit Spoke with: Anneliese Cardiac: WNL Except Cardiac Comment: 1/2 got new bp machine for [employer] and was reading "High"; went to er and it was 127/79 and ekg/labs ok. taking more lisinopril and new HCTZ. will look to see if her grocery store has a bp machine she can use Respiratory: WNL Except Respiratory Comment: 07/21 using O2 at hs and prn. still smoking but less amount. finished up prednisone and atb. has new Proair inhaler and kkeeps it with her . no sob or cough GI: Nutrition: WNL : WNL Except Comment: 1 reports initially had more output after starting HCTZ but, is manageable and less urgent now Musculoskeletal, Exercise: WNL Mobility/Falls: WNL Integumentary: WNL Feeling of Well Being: WNL Scheduled Follow-Up with [facility]: Yes Community Resources/HHC: 1/2 sees [facility] 07/23. Needed or Pending Tests: Yes (1/2 had labs today) Following Discharge Instructio: Yes TCM Discharge Criteria Medication Knowledge: 07/21 review new atb and prednisone is complete, has lisinopril and HCTZ for bp and new rescue inhaler Red/Yellow Flags: COPD Transitional Care Comment: 07/16 review quit smoking, COPD, pneumonia, prednisone taper, O2 at home, nicotene replacement therapy, getting a flu shot before dc. 07/18 Unable to contact-left message 1/2 feels good and plans to return to work tomorrow. using O2 prn days and at hs. ALONZO MAE Jul 21, 2017 19:22
[2017-07-23] MEDS ORDERED: LISI20TA29 PO (09:30)
[2017-07-23] MEDS ORDERED: HYDR12.561 PO (09:30)
[2017-07-23] MEDS ORDERED: OXYGENHOME INH (09:34)
--- NOTE | 2017-07-25 16:49 | Transitional Care Management ---
Assessment Cardiac: WNL Except Cardiac Comment: 07/21 got new bp machine for [employer] and was reading "High"; went to er and it was 127/79 and ekg/labs ok. taking more lisinopril and new HCTZ. will look to see if her grocery store has a bp machine she can use Respiratory: WNL Except Respiratory Comment: 07/21 using O2 at hs and prn. still smoking but less amount. finished up prednisone and atb. has new Proair inhaler and kkeeps it with her . no sob or cough GI: Nutrition: WNL : WNL Except Comment: 07/21 reports initially had more output after starting HCTZ but, is manageable and less urgent now Musculoskeletal, Exercise: WNL Mobility/Falls: WNL Integumentary: WNL Feeling of Well Being: WNL Scheduled Follow-Up with [facility]: Yes Community Resources/HHC: 07/21 sees [facility] 07/23. Needed or Pending Tests: Yes (2 had labs today) Following Discharge Instructio: Yes TCM Discharge Criteria Medication Knowledge: 07/21 review new atb and prednisone is complete, has lisinopril and HCTZ for bp and new rescue inhaler Red/Yellow Flags: COPD Transitional Care Comment: 07/16 review quit smoking, COPD, pneumonia, prednisone taper, O2 at home, nicotene replacement therapy, getting a flu shot before dc. 07/18 Unable to contact-left message 1/2 feels good and plans to return to work tomorrow. using O2 prn days and at hs. 07/24 & unable to contact KEVIN MONK Jul 25, 2017 16:49
--- NOTE | 2017-07-28 19:00 | Transitional Care Management ---
Assessment Visit Type: Telephone Visit Spoke with: Anneliese Cardiac: WNL Except Cardiac Comment: 07/21 got new bp machine for [employer] and was reading "High"; went to er and it was 127/79 and ekg/labs ok. taking more lisinopril and new HCTZ. will look to see if her grocery store has a bp machine she can use 07/28 Reports BP's better, has a wrist cuff that is close to reading in MD office. Is using lisinopril and HCTZ bid. Respiratory: WNL Except Respiratory Comment: 07/21 using O2 at hs and prn. still smoking but less amount. finished up prednisone and atb. has new Proair inhaler and kkeeps it with her . no sob or cough 07/28 denies s/s. Smoking 1/2 of prior amount, has not called hotline and will not. Using O2 only at hs now GI: Nutrition: WNL GI Comment: 07/28 states BS "good" and managed with her meds. Review DASH diet for her HTN : WNL Except Comment: 07/21 reports initially had more output after starting HCTZ but, is manageable and less urgent now Musculoskeletal, Exercise: WNL Mobility/Falls: WNL Integumentary: WNL Feeling of Well Being: WNL Feeling of Well Being Comment: 07/28 Returned to work 10 hour shifts. first one was tiring but, back to normal now. Feels "good". Scheduled Follow-Up with [facility]: Yes Community Resources/C: 07/21 sees [facility] 07/23. 07/28 sees [facility] 08/12 Needed or Pending Tests: Yes (12 had labs today) Following Discharge Instructio: Yes TCM Discharge Criteria Medication Knowledge: 07/21 review new atb and prednisone is complete, has lisinopril and HCTZ for bp and new rescue inhaler 07/28 reports increased HCTZ and lisinopril doses. Reminded to keep rescue inhaler at all times and have an RX available. Red/Yellow Flags: COPD Transitional Care Comment: 07/16 review quit smoking, COPD, pneumonia, prednisone taper, O2 at home, nicotene replacement therapy, getting a flu shot before dc. 07/18 Unable to contact-left message 12 feels good and plans to return to work tomorrow. using O2 prn days and at hs. 07/24 & unable to contact 07/28 feels good, ready to dc from [facility]. Review s/s to report to of recurrence. ALONZO MAE Jul 28, 2017 19:00
== END 2017-07-29 12:08 | disposition home or self-care (01) ==
LOC: TCM 16:25
PROVIDERS: ATTEND Nurse Practitioner
DX: Z02.9 Encounter for administrative examinations, unspecified (principal)

== ENCOUNTER 2017-07-21 12:05 | Emergency (ER) | payer MEDICARE ==
[2017-07-16 12:59] VITALS: Ht 152.4 cm; Wt 68.0 kg
[~2017-07-21] VITALS: Ht 152.4 cm; Wt 68.0 kg
--- NOTE | 2017-07-21 12:07 | ER Report ---
History and Physical Time Seen By MD: 12:06 HPI/ROS CHIEF COMPLAINT: High blood pressure reading at home HISTORY OF PRESENT ILLNESS: Patient reports her blood pressure monitor at home has been reading high since she received the crystals present. Last reading at a diastolic of 117. Systolic was also elevated but below 220. She was checked here and blood pressure was near normal in triage. She denies chest pain shortness of breath nausea diaphoresis or any other symptoms. She denies lightheadedness or dizziness dry mouth, dark urine. REVIEW OF SYSTEMS: Respiratory: No cough, no dyspnea. Cardiovascular: No chest pain, no palpitations. Gastrointestinal: No vomiting, no abdominal pain. Musculoskeletal: No back pain. Allergies: Coded Allergies: No Known Drug Allergies (Unverified , 07/15/17) Home Meds Active Scripts Cefdinir 300 Mg Cap (OMNICEF 300 MG CAP (OR EQUIV)) 300 Mg Cap, 300 MG PO BID, # 7 CAP Prov:HILLARY SUTTON MD 07/17/17 Hydrochlorothiazide (HYDROCHLOROTHIAZIDE) 25 Mg Tablet, 12.5 MG PO QDAY, #30 Prov:HILLARY SUTTON MD 07/17/17 Prednisone (PREDNISONE) 20 Mg Tablet, 20 MG PO DAILY, #3 1 pill a day for 2 days, then 1/2 pill a day for 2 days Prov:HILLARY SUTTON MD 07/17/17 Lisinopril (LISINOPRIL) 20 Mg Tablet, 20 MG PO BID, #60 Prov:HILLARY SUTTON MD 07/17/17 Albuterol Sulfate 90 Mcg/Act (PROAIR HFA 90 MCG/ACT) 8.5 Gm Hfa.aer.ad, 0 GM INH Q4H Y for Dyspnea, #1 Prov:HILLARY SUTTON MD 07/17/17 Insulin Detemir (Levemir Flextouch) 100 Unit/1 Ml Insuln.pen, 14 UNIT SQ BID, # 3 BOX 11 Refills 14 units in am and pm Prov:SUE DAY MD 06/25/17 Levothyroxine Sodium (LEVOTHYROXINE SODIUM) 0.125 Mg Tab, 1 TAB PO QDAY, #90 TAB 11 Refills Prov:SUE DAY MD 06/25/17 Sertraline Hcl (SERTRALINE HCL) 100 Mg Tablet, 1 TAB PO QDAY, #90 TAB 1 Refill Prov:SUE DAY MD 04/24/17 Blood-Glucose Meter (FREESTYLE LITE METER) 1 Each Kit, EACH MC, #1 Prov:SUE DAY MD 04/09/17 Lancets (FREESTYLE LANCETS) 1 Each Each, EACH XX QDAY, #1 3 Refills Prov:SUE DAY MD 04/09/17 Blood Sugar Diagnostic (FREESTYLE TEST STRIPS) 1 Each Strip, 1 EACH MC QDAY for 90 Days, #100 STRIP 3 Refills Alternating time of day checking glucose. Prov:SUE DAY MD 04/09/17 Reported Medications Ipratropium/Albuterol Sulfate (COMBIVENT RESPIMAT INHAL SPRAY) 4 Gm Aer.w.adap, 1 EACH IH QID 04/09/17 Hydroxyzine Hcl (HYDROXYZINE HCL) 25 Mg Tablet, 1 TAB PO TID Y for ITCHING 04/09/17 Simvastatin (SIMVASTATIN) 40 Mg Tablet, 40 MG PO HS, TAB 04/09/17 Lorazepam (LORAZEPAM) 0.5 Mg Tablet, 1 TAB PO DAILY Y for ANXIETY 04/09/17 Metformin Hcl (METFORMIN HCL) 1,000 Mg Tablet, 1 TAB PO BID, TAB 04/09/17 Discontinued Reported Medications Lisinopril (LISINOPRIL) 20 Mg Tablet, 1 TAB PO QDAY, TAB 04/09/17 Smoking Status: Current: Every Day Smoker Exposure to Second Hand Smoke?: Yes Hx Alcohol Use: No Constitutional Vital Sign - Last 24 Hours 07/21/17 12:15 Pulse 113 Resp 20 B/P (MAP) 138/85 Pulse Ox 91 O2 Delivery Room Air Physical Exam General Appearance: The patient is alert, has no immediate need for airway protection and no signs of toxicity. No acute distress. Appears mildly anxious Eyes: Pupils equal and round no pallor or injection. ENT, Mouth: Mucous membranes are moist. Respiratory: There are no retractions, lungs are clear to auscultation. Cardiovascular: Regular rate and rhythm. Mild tachycardia Gastrointestinal: Abdomen is soft and non tender, no masses, bowel sounds normal. Neurological: Normal gross neuro exam Skin: Warm and dry, no rashes. Musculoskeletal: Neck is supple non tender. Extremities are nontender, nonswollen and have full range of motion. [ ] DIFFERENTIAL DIAGNOSIS: After history and physical exam differential diagnosis was considered for blood pressure monitor air calibration error hardware problem. Anxiety, tachycardia Medical Decision Making ED Course/Re-evaluation ED Course Blood pressure readings here were reassuring were compared directly compared to her home blood pressure monitor. She says the monitor was a gas. I encouraged her to follow up with the manufacture for calibration or other testing and to discontinue use of continues testing high. Of note it was also tried on her son here in the emergency department and also read very high. Decision to Disposition Date: Jul 21, 2017 Decision to Disposition Time: 12:38 Depart Departure Latest Vital Signs Vital Signs Date Time Temp Pulse Resp B/P (MAP) Pulse Ox O2 Delivery O2 Flow Rate FiO2 07/21/17 12:15 113 20 138/85 91 Room Air Impression: Primary Impression: HTN (hypertension) Condition: Improved Disposition: HOME OR SELF-CARE Referrals: SUE DAY MD (PCP) Patient Instructions: Chronic Hypertension (ED) KORY YING MD Jul 21, 2017 12:07
--- NOTE | 2017-07-21 12:36 | EKG ---
[place] [facility] [place] ADEN MELGAR : [id number] MR: [id number] V: [id number] EXAM DATE: ORDERING PHYSICIAN: KORY YING TECHNOLOGIST: Test Reason : Blood Pressure : / mmHG Vent. Rate : 102 BPM Atrial Rate : 102 BPM P-R Int : 148 ms QRS Dur : 068 ms QT Int : 354 ms P-R-T Axes : 041 008 -03 degrees QTc Int : 461 ms Sinus tachycardia with premature supraventricular complexes Possible Left atrial enlargement Nonspecific ST and T wave abnormality Abnormal ECG When compared with ECG of 15-JUL-2017 12:34, No significant change was found Confirmed by HILLARY SUTTON ([id number]) on 07/22/2017 1:52:01 AM Referred By: Confirmed By:HILLARY SUTTON
[2017-07-21 13:01] VITALS: BP 127/94
== END 2017-07-21 14:10 | disposition home or self-care (01) ==
LOC: ER 12:14
DX: I10 Essential (primary) hypertension (principal)
CPT/HCPCS: 93005; 99282

== ENCOUNTER → 2017-07-21 | Outpatient (CLI) | payer MEDICARE ==
[2017-07-16 12:59] VITALS: BMI 29.3
[~2017-07-21] MED LIST changes: +ALBU8.5H INH; +CEF300 PO; +HYDR-2966 PO; +PRED20TA6 PO
[2017-07-21 13:54] LABS: PLATELET COUNT, AUTOMATED 171 K/uL (150-450)
== END ==
LOC: LAB 13:03
PROVIDERS: ATTEND Internal Medicine
DX: I10 Essential (primary) hypertension (principal); D64.9 Anemia, unspecified; R79.89 Other specified abnormal findings of blood chemistry
CPT/HCPCS: 36415; 82310; 82374; 82435; 82565; 82947; 84132; 84295; 84520; 85025

== ENCOUNTER → 2017-08-24 | Outpatient (CLI) | payer MEDICARE, BC ==
[~2017-08-24] MED LIST changes: +HYDR12.561 PO; +OXYGENHOME INH
[2017-08-24 09:45] LABS: LDL CHOLESTEROL 77 mg/dl
== END ==
LOC: LAB 08:09
PROVIDERS: ATTEND Internal Medicine
DX: I10 Essential (primary) hypertension (principal); E78.00 Pure hypercholesterolemia, unspecified; E11.65 Type 2 diabetes mellitus with hyperglycemia
CPT/HCPCS: 36415; 82040; 82247; 82310; 82374; 82435; 82465; 82565; 82947; 83036; 83718; 84075; 84132; 84155; 84295; 84450; 84460; 84478; 84520

== ENCOUNTER → 2017-12-07 | Outpatient (CLI) | payer MEDICARE, BC ==
[~2017-12-07] MED LIST changes: +ESC10 PO; -METF-420 PO; +METF-421 PO; +NEED-653 SC
[2017-12-07 10:03] LABS: LDL CHOLESTEROL 83 mg/dl
== END ==
LOC: LAB 09:31
PROVIDERS: ATTEND Internal Medicine
DX: E11.65 Type 2 diabetes mellitus with hyperglycemia (principal); E78.00 Pure hypercholesterolemia, unspecified; I10 Essential (primary) hypertension
CPT/HCPCS: 36415; 82040; 82247; 82310; 82374; 82435; 82465; 82565; 82947; 83036; 83718; 84075; 84132; 84155; 84295; 84450; 84460; 84478; 84520

== ENCOUNTER 2018-05-18 02:28 | Day surgery (SDC) | payer BC, MEDICARE ==
[2017-07-16 12:59] VITALS: Ht 154.9 cm; Wt 68.0 kg
[~2018-05-18] VITALS: Ht 154.9 cm; Wt 68.0 kg
[~2018-05-18 02:28] MED LIST changes: +BLOO-1037 MC; +BLOO-960 MC; -METF-421 PO; +METF-452 PO
[2018-05-18] MEDS ORDERED: LIDOCAINE/SOD BICARB 8.4% SYR ID ONE (09:00)
[2018-05-18] MEDS ORDERED: NORMOSOL R SOLN(*) 1000 ML BAG 1,000 ML IV PRN (09:00)
[2018-05-18 09:01] VITALS: BP 126/72
[2018-05-18] MEDS ORDERED: PROPOFOL EMUL(*) 10MG/ML 20 ML 60 ML ONE (10:23)
[2018-05-18] MEDS ORDERED: LIDOCAINE MPF 1% 5 ML VIAL ONE (10:23)
[2018-05-18 11:14] VITALS: BP 108/81
--- NOTE | 2018-05-18 11:20 | Short(Outpt) Discharge Summary ---
Discharge Summary Reason for Hosp/Final Diag: (1) Colon cancer screening Status: Chronic Hospital Course & Plan: Colonoscopy with polypectomy x5 completed without problems. Departure Discharge to: Home, Self Care Discharge Instructions Home Meds Active Scripts Blood Sugar Diagnostic (BLOOD GLUCOSE TEST STRIP) 1 Each Strip, 100 EA MC every 90 days, #100 EA 12 Refills Use to test Blood sugar daily Prov:SUE DAY MD 04/20/18 Blood-Glucose Meter (BLOOD GLUCOSE METER) 1 Each Each, EACH MC ONCE, #1 Prov:SUE DAY MD 04/20/18 [facility] [employer] [facility], Insulin Disposable (Bd Ultra-Fine Pen Needle) 1 Each Dis.needle, EA SC Q30D, #100 12 Refills Use to administer insulin BID Prov:SUE DAY MD 03/01/18 Lisinopril (LISINOPRIL) 20 Mg Tablet, 1 TAB PO QDAY, #90 3 Refills Prov:SUE DAY MD 01/05/18 Escitalopram Oxalate (LEXAPRO) 10 Mg Tab, 1 TAB PO QDAY, #90 TAB 1 Refill Prov:SUE DAY MD 01/05/18 Insulin Detemir 100 UN/ML PEN (Levemir Flextouch) 100 Unit/1 Ml Insuln.pen, 16 UNIT SQ BID, #3 BOX 3 Refills 16 units in am and pm Prov:SUE DAY MD 01/05/18 Hydrochlorothiazide (HYDROCHLOROTHIAZIDE) 12.5 Mg Tablet, 1 TAB PO QDAY, #90 TAB 3 Refills Prov:SUE DAY MD 01/05/18 Levothyroxine Sodium (LEVOTHYROXINE SODIUM) 0.125 Mg Tab, 1 TAB PO QDAY, #90 TAB 3 Refills Prov:SUE DYA MD 01/05/18 Simvastatin (SIMVASTATIN) 40 Mg Tablet, 1 TAB PO HS, #90 TAB 3 Refills Prov:SUE DAY MD 01/05/18 Metformin Hcl (METFORMIN HCL) 1,000 Mg Tablet, 1 TAB PO BID, #180 TAB 3 Refills Prov:SUE DAY MD 01/05/18 Lorazepam (LORAZEPAM) 0.5 Mg Tablet, 1 TAB PO DAILY PRN for ANXIETY, #30 TAB 0 Refills Prov:SUE DAY MD 12/22/17 Albuterol Sulfate 90 Mcg/Act (PROAIR HFA 90 MCG/ACT) 8.5 Gm Hfa.aer.ad, 0 GM INH Q4H PRN for Dyspnea, #1 Prov:HILLARY SUTTON MD 07/17/17 Reported Medications Sertraline Hcl (SERTRALINE HCL) 100 Mg Tablet, 1 TAB PO QDAY, TAB 05/04/18 Oxygen (OXYGEN) Inha, 2 L INH HS, L 07/23/17 Diet: Regular Activity: As Tolerated Special Instructions: Your colonoscopy was completed without problems and your prep was excellent (Good Job!!). I removed 5 polyps from your colon and they were sent to pathology. My office will call you in the next week or two and let you know what the polyps are and when your next colonoscopy should be (either 3, 5 or 10 years depending on if some or all of the polyps are benign or precancerous). EILEEN BATISTA MD May 18, 2018 11:20
[2018-05-18 11:30] VITALS: BP 121/64
[2018-05-18 11:43] VITALS: BP 127/86
[2018-05-18 11:44] VITALS: BP 134/88
== END 2018-05-18 12:10 | disposition home or self-care (01) ==
LOC: OR 02:28
PROVIDERS: ATTEND Surgery
DX: Z12.11 Encounter for screening for malignant neoplasm of colon (principal); D12.3 Benign neoplasm of transverse colon; D12.5 Benign neoplasm of sigmoid colon; K62.1 Rectal polyp; E11.9 Type 2 diabetes mellitus without complications; I10 Essential (primary) hypertension
CPT/HCPCS: 00811; 36416; 45385; 82948; 88305; J2001; J2704

== ENCOUNTER → 2018-08-02 | Outpatient (CLI) | payer MEDICARE, BC ==
[2018-08-02 11:41] LABS: LDL CHOLESTEROL 85 mg/dl
== END ==
LOC: LAB 10:50
PROVIDERS: ATTEND Internal Medicine
DX: E11.65 Type 2 diabetes mellitus with hyperglycemia (principal); E78.00 Pure hypercholesterolemia, unspecified; I10 Essential (primary) hypertension; E03.9 Hypothyroidism, unspecified
CPT/HCPCS: 36415; 82040; 82247; 82310; 82374; 82435; 82465; 82565; 82947; 83036; 83718; 84075; 84132; 84155; 84295; 84443; 84450; 84460; 84478; 84520

== ENCOUNTER → 2018-08-03 | Outpatient (CLI) | payer BC, MEDICARE ==
--- NOTE | 2018-08-03 14:11 | RADIOLOGY IMAGING REPORT ---
FACILITY: [facility] PATIENT NAME: ADEN MELGAR : [id number] MR: [id number] V: [id number] EXAM DATE: ORDERING PHYSICIAN: SUE DAY TECHNOLOGIST: Jenny Chino PROCEDURE:BILATERAL DIGITAL SCREENING MAMMOGRAM WITH CAD ASSISTED INTERPRETATION & 3D TOMOSYNTHESIS COMPARISON:Prior mammograms dated 02/13/16, 08/30/12, 08/29/11 INDICATIONS:screening FINDINGS: Scattered fibroglandular densities are seen throughout the breasts. The parenchymal pattern has remained stable allowing for difference in mammographic technique & patient positioning. There is no evidence of malignant appearing mass, malignant appearing calcification or other secondary sign of malignancy in either breast. DIAGNOSTIC CATEGORY 1--NEGATIVE. RECOMMENDATIONS: ROUTINE MAMMOGRAM AND CLINICAL EVALUATION. IMPRESSION: BIRADS 1: Negative. No significant abnormality is seen. Dictated by: Felecia Hunt M.D. on 08/03/2018 at 10:45 Transcribed by: FLAKITA on 08/03/2018 at 12:55 Approved by: Felecia Hunt M.D. on 08/03/2018 at 14:10 [facility]
--- NOTE | 2018-08-05 14:33 | RADIOLOGY IMAGING REPORT ---
FACILITY: [facility] - [place] PATIENT NAME: Anneliese Magana : 1945 MR: [id number] V: [id number] EXAM DATE: ORDERING PHYSICIAN: SUE DAY TECHNOLOGIST: Location: [facility] Patient: Anneliese Magana : 1945 Visit/Account:[id number] Date of Sevice: 08/03/2018 DEXA Scan Clinical history: Screening postmenopausal, hypothyroidism. Comparison: None available. LUMBAR SPINE: The bone mineral density (BMD) measured from L1-L4 correlates with a Z-score -1.5 and a T-score of is three which is osteoporosis as defined by the World Health Organization. The corresponding risk of fracture in the lumbar spine is 8 times increased compared with a young adult reference population. HIP: Bone mineral density (BMD) measured in the Left total hip region correlates with a Z-score and a T-sc ore of -1.2 which is osteopenia as defined by the World Health Organization. The corresponding risk of fracture in the hip is to 3 times increased compared with a young adult reference population. T score left femoral neck -1.8 Bone mineral density (BMD) measured in the Femoral Neck region measures 0.789 g/cm2. Impression: 1. Lumbar spine: Osteoporosis. 2. Left Hip: Osteopenia. 3. Femoral Neck: Bone Mineral Density is 0.789 g/cm2 The next DEXA scan of this patient should include the following sites: L1-L4 and the left hip. FRAX? WHO Fracture Risk Assessment Tool link: <http://www.shef.ac.uk/FRAX/tool.jsp?locationValue=9> PLEASE NOTE: 1) The World Health Organization defines low BMD as follows: T-score Normal > -1 Osteopenia < -1 and > -2.5 Osteoporosis < -2.5 without fractures Established osteoporosis < -2.5 with fractures 2) In general, you may wish to consider: Diagnosis Treatment Follow-up DEXA Normal BMD Prevention 2-3 years Osteopenia Prevention/therapy 1-2 years Osteoporosis Therapy Yearly 3) Fracture risk estimated from the T-score is more accurate for vertebral fractures (often spontane ous) than for hip fractures. Report Dictated By: Felecia Hunt MD at 08/05/2018 2:09 PM Report E-Signed By: Felecia Hunt MD at 08/05/2018 2:29 PM WSN:[email or web address]
== END ==
LOC: MAMO 01:14
PROVIDERS: ATTEND Internal Medicine
DX: Z12.31 Encounter for screening mammogram for malignant neoplasm of breast (principal); M85.88 Other specified disorders of bone density and structure, other site; M81.0 Age-related osteoporosis without current pathological fracture
CPT/HCPCS: 77063; 77067; 77080

== ENCOUNTER → 2018-08-03 | Outpatient (CLI) | payer BC, MEDICARE | LOC: AUD 09:20 | PROVIDERS: ATTEND Internal Medicine | DX: H91.93 Unspecified hearing loss, bilateral (principal) | CPT/HCPCS: 92557 ==

== ENCOUNTER → 2018-08-10 | Outpatient (CLI) | payer BC, MEDICARE ==
[~2018-08-10] MED LIST changes: +ALEN70TA43 PO; +ERGO500037 PO
== END ==
LOC: LAB 10:27
PROVIDERS: ATTEND Internal Medicine
DX: M81.0 Age-related osteoporosis without current pathological fracture (principal)
CPT/HCPCS: 36415; 82306

== ENCOUNTER → 2018-10-04 | Outpatient (CLI) | payer BC, MEDICARE ==
[~2018-10-04] MED LIST changes: +DIPH-740 PO; +FAMO20TA28 PO
== END ==
LOC: LAB 11:08
PROVIDERS: ATTEND Internal Medicine
DX: E55.9 Vitamin D deficiency, unspecified (principal)
CPT/HCPCS: 36415; 82306

== ENCOUNTER 2018-10-05 06:36 | Emergency (ER) | payer BC, MEDICARE ==
[2017-07-16 12:59] VITALS: Wt 71.2 kg
[~2018-10-05 06:36] MED LIST changes: -DIPH-740 PO; -FAMO20TA28 PO
[2018-10-05] MEDS ORDERED: IPRA4AER IH (06:54)
[2018-10-05] MEDS ORDERED: HYDR-4225 PO (06:54)
[2018-10-05] MEDS ORDERED: diphenhydrAMINE 50 MG/ML VIAL IVP ONE (07:10)
[2018-10-05] MEDS ORDERED: methylPREDNIS SUCC 125 MG/2ML IVP ONE (07:10)
[2018-10-05] MEDS ORDERED: FAMOTIDINE(*) 20MG/50ML PREMIX 50 ML IVPB ONE (07:10)
--- NOTE | 2018-10-05 07:15 | ER Report ---
History and Physical Time Seen By MD: 06:55 Hx. of Stated Complaint: patient states she started having pain in tongue last night with swelling. patient unsure if she reacted to the francoise tea she drank right before. patient states the swelling has gone down a little, but now patient is having pain in throat, and increased pain in tongue. patient states that has a slight headache, slight shortness of breath and upset stomach. (PIOTR CANSECO MD) HPI/ROS CHIEF COMPLAINT: Tongue swelling HISTORY OF PRESENT ILLNESS: 73-year-old female COPD diabetes hypertension, presents with tongue swelling that began last night. Patient did not have known precipitant, no change in medication or diet though mentions that she had some francoise tea. She also felt some tightness in her throat. Swelling was significant enough that she had to take out her dentures last night. She had trouble sleeping overnight. She states that swelling is slightly improved this morning but she has continued pain especially on the right side of her tongue so came in for evaluation. She has had no fever or chills. She does feel somewhat nauseous. She has had no rash or other swelling. She does not know if she is on an NIKUNJ inhibitor or other similar medication. She has never had this before. She has no recent URI symptoms. REVIEW OF SYSTEMS: Constitutional: No fever, no chills. Eyes: No discharge. ENT: above Cardiovascular: No chest pain, no palpitations. Respiratory: No cough, no shortness of breath. Gastrointestinal: No abdominal pain, no vomiting. Genitourinary: no dysuria Musculoskeletal: No back pain. Skin: No rashes. Neurological: No headache. Remainder of the 14 system rev: Yes (PIOTR CANSECO MD) Allergies: Coded Allergies: No Known Drug Allergies (Unverified , 10/05/18) Home Meds Active Scripts Famotidine (PEPCID) 20 Mg Tablet, 20 MG PO QDAY for 2 Days, #2 TAB 0 Refills Prov:PIOTR KENNEDY MD 10/05/18 Diphenhydramine Hcl (BENADRYL) 25 Mg Capsule, 25 MG PO Q6H, #8 CAPSULE 0 Refills Prov:PIOTR KENNEDY MD 10/05/18 Ergocalciferol (Vitamin D2) (VITAMIN D2) 50,000 Unit Capsule, 1 CAP PO QWEEK, #12 CAPSULE 1 Refill Prov:VANI CLARKE MD 10/04/18 Escitalopram Oxalate (LEXAPRO) 10 Mg Tab, 1 TAB PO QDAY, #90 TAB 0 Refills Prov:VANI CLARKE MD 09/27/18 Alendronate Sodium (FOSAMAX) 70 Mg Tablet, 1 TAB PO QWK, #12 TAB 1 Refill Prov:SUE DAY MD 08/10/18 Blood Sugar Diagnostic (BLOOD GLUCOSE TEST STRIP) 1 Each Strip, 100 EA MC every 90 days, #100 EA 12 Refills Use to test Blood sugar daily Prov:SUE DAY MD 04/20/18 Blood-Glucose Meter (BLOOD GLUCOSE METER) 1 Each Each, EACH MC ONCE, #1 Prov:SUE DAY MD 04/20/18 [place], Insulin Disposable (Bd Ultra-Fine Pen Needle) 1 Each Dis.needle, EA SC Q30D, #100 12 Refills Use to administer insulin BID Prov:SUE DAY MD 03/01/18 Lisinopril (LISINOPRIL) 20 Mg Tablet, 1 TAB PO QDAY, #90 3 Refills Prov:SUE DAY MD 01/05/18 Insulin Detemir 100 UN/ML PEN (Levemir Flextouch) 100 Unit/1 Ml Insuln.pen, 16 UNIT SQ BID, #3 BOX 3 Refills 16 units in am and pm Prov:SUE DAY MD 01/05/18 Hydrochlorothiazide (HYDROCHLOROTHIAZIDE) 12.5 Mg Tablet, 1 TAB PO QDAY, #90 TAB 3 Refills Prov:SUE DAY MD 01/05/18 Levothyroxine Sodium (LEVOTHYROXINE SODIUM) 0.125 Mg Tab, 1 TAB PO QDAY, #90 TAB 3 Refills Prov:SUE DAY MD 01/05/18 Simvastatin (SIMVASTATIN) 40 Mg Tablet, 1 TAB PO HS, #90 TAB 3 Refills Prov:SUE DAY MD 01/05/18 Metformin Hcl (METFORMIN HCL) 1,000 Mg Tablet, 1 TAB PO BID, #180 TAB 3 Refills Prov:SUE DAY MD 01/05/18 Lorazepam (LORAZEPAM) 0.5 Mg Tablet, 1 TAB PO DAILY PRN for ANXIETY, #30 TAB 0 Refills Prov:SUE DAY MD 12/22/17 Reported Medications Hydroxyzine Hcl (HYDROXYZINE HCL) 25 Mg Tablet, 25 MG PO Q8H PRN for ITCHING 10/05/18 Ipratropium/Albuterol Sulfate (COMBIVENT RESPIMAT INHAL SPRAY) 4 Gm Aer.w.adap, 1 EACH IH Q4H PRN for SHORTNESS OF BREATH 10/05/18 Oxygen (OXYGEN) Inha, 2 L INH HS, L 07/23/17 Discontinued Scripts Albuterol Sulfate 90 Mcg/Act (PROAIR HFA 90 MCG/ACT) 8.5 Gm Hfa.aer.ad, 0 GM INH Q4H PRN for Dyspnea, #1 Prov:HILLARY SUTTON MD 07/17/17 Reviewed Nurses Notes: Yes (PIOTR CANSECO MD) Hx Smoking: Yes (1 ppd) Smoking Status: Current: Every Day Smoker Exposure to Second Hand Smoke?: Yes Hx Substance Use Disorder: No Hx Alcohol Use: No (PIOTR CANSECO MD) Constitutional Vital Sign - Last 24 Hours 10/05/18 10/05/18 10/05/18 10/05/18 06:42 06:42 07:00 07:06 Temp 98.3 Pulse 90 76 Resp 20 B/P (MAP) 158/85 158/85 (109) 130/80 (97) Pulse Ox 97 96 O2 Delivery Nasal Cannula 10/05/18 10/05/18 10/05/18 10/05/18 07:30 07:36 08:00 08:05 Pulse 85 85 B/P (MAP) 134/72 (92) 143/99 (114) Pulse Ox 96 95 O2 Delivery Nasal Cannula O2 Flow Rate 2 (PIOTR KENNEDY MD) Physical Exam General Appearance: The patient is alert, has no immediate need for airway protection and no signs of toxicity. Eyes: Pupils equal and round no pallor or injection. ENT, Mouth: Mucous membranes are moist. Tongue edema, slight r post pharynx edema. No [employer]. Uvula midline. Submandibular ttp without significant fullness. Respiratory: There are no retractions, lungs are clear to auscultation. Cardiovascular: Regular rate and rhythm. Neurological: alert, oriented, nad Skin: Warm and dry, no rashes. Musculoskeletal: Neck is supple non tender. DIFFERENTIAL DIAGNOSIS: After history and physical exam differential diagnosis was considered for angioedema, Saeed's angina, strep pharyngitis, or other emergent etiology (PIOTR CANSECO MD) Medical Decision Making Data Points Result Diagram: 10/05/18 0723 10/05/18 0723 Laboratory Hematology Test 10/05/18 07:23 10/05/18 07:31 Red Blood Count 3.94 M/uL (4.17-5.56) Mean Corpuscular Volume 84.1 fL (80.0-96.0) Mean Corpuscular Hemoglobin 27.6 pg (26.0-33.0) Mean Corpuscular Hemoglobin Concent 32.8 g/dL (32.0-36.0) Red Cell Distribution Width 16.9 % (11.5-14.5) Mean Platelet Volume 9.7 fL (7.2-11.1) Neutrophils (%) (Auto) 72.7 % (39.4-72.5) Lymphocytes (%) (Auto) 16.2 % (17.6-49.6) Monocytes (%) (Auto) 9.5 % (4.1-12.4) Eosinophils (%) (Auto) 0.8 % (0.4-6.7) Basophils (%) (Auto) 0.8 % (0.3-1.4) Nucleated RBC Relative Count (auto) 0.0 /100WBC Neutrophils # (Auto) 3.4 K/uL (2.0-7.4) Lymphocytes # (Auto) 0.8 K/uL (1.3-3.6) Monocytes # (Auto) 0.4 K/uL (0.3-1.0) Eosinophils # (Auto) 0.0 K/uL (0.0-0.5) Basophils # (Auto) 0.0 K/uL (0.0-0.1) Nucleated RBC Absolute Count (auto) 0.00 K/uL Sodium Level 136 mmol/L (137-145) Potassium Level 3.9 mmol/L (3.5-5.0) Chloride Level 105 mmol/L (98-107) Carbon Dioxide Level 26 mmol/L (22-31) Blood Urea Nitrogen 13 mg/dl (7-18) Creatinine 0.50 mg/dl (0.52-1.04) Glomerular Filtration Rate Calc > 60.0 Random Glucose 134 mg/dl (75-110) Calcium Level 8.8 mg/dl (8.4-10.2) Group A Streptococcus (PCR) Negative (NEGATIVE) Chemistry Test 10/05/18 07:23 10/05/18 07:31 White Blood Count 4.7 k/uL (4.5-11.0) Red Blood Count 3.94 M/uL (4.17-5.56) Hemoglobin 10.9 g/dL (12.0-16.0) Hematocrit 33.1 % (34.0-47.0) Mean Corpuscular Volume 84.1 fL (80.0-96.0) Mean Corpuscular Hemoglobin 27.6 pg (26.0-33.0) Mean Corpuscular Hemoglobin Concent 32.8 g/dL (32.0-36.0) Red Cell Distribution Width 16.9 % (11.5-14.5) Platelet Count 100 K/uL (150-450) Mean Platelet Volume 9.7 fL (7.2-11.1) Neutrophils (%) (Auto) 72.7 % (39.4-72.5) Lymphocytes (%) (Auto) 16.2 % (17.6-49.6) Monocytes (%) (Auto) 9.5 % (4.1-12.4) Eosinophils (%) (Auto) 0.8 % (0.4-6.7) Basophils (%) (Auto) 0.8 % (0.3-1.4) Nucleated RBC Relative Count (auto) 0.0 /100WBC Neutrophils # (Auto) 3.4 K/uL (2.0-7.4) Lymphocytes # (Auto) 0.8 K/uL (1.3-3.6) Monocytes # (Auto) 0.4 K/uL (0.3-1.0) Eosinophils # (Auto) 0.0 K/uL (0.0-0.5) Basophils # (Auto) 0.0 K/uL (0.0-0.1) Nucleated RBC Absolute Count (auto) 0.00 K/uL Glomerular Filtration Rate Calc > 60.0 Calcium Level 8.8 mg/dl (8.4-10.2) Group A Streptococcus (PCR) Negative (NEGATIVE) (PIOTR KENNEDY MD) ED Course/Re-evaluation ED Course 10/05/2018 8:04:49 am patient resting comfortably states throat feels less swollen bloodwork unremarkable awaiting results of rapid strep. 10/05/2018 8:44:41 am patient continues to do well observed for a total of 2 hours in the emergency department we'll discharge home Decision to Disposition Date: Oct 05, 2018 Decision to Disposition Time: 08:45 Turned Over Accepted care of patient at 7:05 AM this morning from Dr. sierra. Suspect patient with mild angioedema likely secondary to current NIKUNJ inhibitor. Patient is ma intaining airway and no difficulty breathing no pooling of secretions. Uvula is symmetrical. Plan will be to check basic labs I will also check a strep screen and observed the patient for approximately 2 hours to ensure improvement versus progression of angioedema. (PIOTR KENNEDY MD) Depart Departure Latest Vital Signs Vital Signs Date Time Temp Pulse Resp B/P (MAP) Pulse Ox O2 Delivery O2 Flow Rate FiO2 10/05/18 08:05 85 95 Nasal Cannula 2 10/05/18 08:00 143/99 (114) 10/05/18 06:42 98.3 20 (PIOTR KENNEDY MD) Impression: Primary Impression: Angioedema due to angiotensin converting enzyme inhibitor (NIKUNJ-I) Condition: Improved Disposition: HOME OR SELF-CARE Referrals: VANI CLARKE MD (PCP) call to discuss changing to a new antihypertensive that is not of the NIKUNJ or ARB inhibitor class. New Scripts Famotidine (PEPCID) 20 Mg Tablet 20 MG PO QDAY for 2 Days, #2 TAB 0 Refills Prov: PIOTR KENNEDY MD 10/05/18 Diphenhydramine Hcl (BENADRYL) 25 Mg Capsule 25 MG PO Q6H, #8 CAPSULE 0 Refills Prov: PIOTR KENNEDY MD 10/05/18 Patient Instructions: Angioedema (ED) Additional Instructions: Discontinue use of your lisinorpil immediately Benadryl- 25mg; one tablet every 6 hours for 2 days Pepcid 20mg; one tablet daily for 2 days (start on 10/06/18) Call Dr Clarke to dian switching you to a new antihypertensive that is not of the NIKUNJ or ARB inhibitor class Return to the emergency department immediatley or call 911 if you develop any worsening throat swelling or difficulty breathing PIOTR CANSECO MD Oct 05, 2018 07:15 PIOTR KENNEDY MD Oct 05, 2018 07:51
[2018-10-05 07:30] LABS: PLATELET COUNT, AUTOMATED 100 K/uL (150-450)
[2018-10-05] MEDS ORDERED: FAMO20TA28 PO (08:32)
[2018-10-05] MEDS ORDERED: DIPH-740 PO (08:32)
[2018-10-05 08:46] VITALS: BP 126/71
[2018-10-06] MEDS ORDERED: AMLO-125 PO (10:38)
[2018-10-06] MEDS ORDERED: ROSU20TA5 PO (10:38)
[2018-10-06] MEDS ORDERED: HYDR-2966 PO (10:38)
[2018-10-06] MEDS ORDERED: FERR-53 PO (14:58)
== END 2018-10-05 08:55 | disposition home or self-care (01) ==
LOC: ER 08:24
DX: T78.3XXA Angioneurotic edema, initial encounter (principal)
CPT/HCPCS: 85025; 87653; 96365; 96375; 99284; J1200; J2930; 82310; 82374; 82435; 82565; 82947; 84132; 84295; 84520

== ENCOUNTER → 2018-10-06 | Outpatient (CLI) | payer BC, MEDICARE ==
[~2018-10-06] MED LIST changes: +AMLO-125 PO; +DIPH-740 PO; +FAMO20TA28 PO; +FERR-53 PO; +ROSU20TA5 PO
[2018-10-06 11:18] LABS: PLATELET COUNT, AUTOMATED 102 K/uL (150-450)
== END ==
LOC: LAB 10:34
PROVIDERS: ATTEND Emergency Medicine
DX: D50.9 Iron deficiency anemia, unspecified (principal)
CPT/HCPCS: 36415; 82607; 82728; 82746; 83540; 83550; 85007; 85027

== ENCOUNTER → 2018-10-25 | Outpatient (CLI) | payer BC, MEDICARE ==
[~2018-10-25] MED LIST changes: +CYAN500T38 PO; +INSU100I8 SUBQ; +UMEC1DIS INH
[2018-10-25 10:08] LABS: PLATELET COUNT, AUTOMATED 91 K/uL (150-450)
== END ==
LOC: LAB 09:43
PROVIDERS: ATTEND Emergency Medicine
DX: D50.9 Iron deficiency anemia, unspecified (principal)
CPT/HCPCS: 36415; 85025

== ENCOUNTER → 2018-10-26 | Outpatient (CLI) | payer BC, MEDICARE ==
--- NOTE | 2018-10-26 13:42 | RADIOLOGY IMAGING REPORT ---
FACILITY: [facility] [place] PATIENT NAME: Anneliese Magana : 1945 MR: [id number] V: [id number] EXAM DATE: ORDERING PHYSICIAN: VANI DE LA ROSA TECHNOLOGIST: Location: [facility] Patient: Anneliese Magana : 1945 Visit/Account:[id number] Date of Sevice: 10/26/2018 CHEST PA LAT History: COPD FINDINGS: Comparison studies: Chest x-ray 07/15/2017 and chest CTA 07/15/2017 Tubes and Lines: None. Lungs and pleura: On the lateral view there flattening the diaphragms unchanged from the previous s tudy and compatible with reported history. Lung parenchyma is well-aerated. No evidence of pleural effusions. Mediastinum: Right pulmonary outflow tract is prominent but unchanged raising concern for pulmonary hypertension Cardiac silhouette: Borderline upper normal limits in size Osseous structures: Unremarkable for age . IMPRESSION: Stable Mild chronic pulmonary hyperinflation compatible with above history. Possible accompanying pulmonary hypertension. Report Dictated By: Jg Thapa MD at 10/26/2018 1:34 PM Report E-Signed By: Jg Thapa MD at 10/26/2018 1:38 PM WSN:[email or web address]
== END ==
LOC: LAB 11:44
PROVIDERS: ATTEND Emergency Medicine
DX: R35.1 Nocturia (principal); N39.0 Urinary tract infection, site not specified; J44.9 Chronic obstructive pulmonary disease, unspecified
CPT/HCPCS: 71046; 81001; 87088

== ENCOUNTER → 2019-01-04 | Outpatient (CLI) | payer MEDICARE, BC ==
[~2019-01-04] MED LIST changes: -CYAN500T38 PO; +CYAN500T39 PO
== END ==
LOC: LAB 11:17
PROVIDERS: ATTEND Emergency Medicine
DX: E78.5 Hyperlipidemia, unspecified (principal); M81.0 Age-related osteoporosis without current pathological fracture; E11.9 Type 2 diabetes mellitus without complications
CPT/HCPCS: 36415; 82306; 82465; 83036; 83718; 84478

== ENCOUNTER → 2019-01-24 | Outpatient (CLI) | payer BC, MEDICARE ==
[~2019-01-24] MED LIST changes: +EMPA10TA PO; +ROSU20TA24 PO
== END ==
LOC: US 00:20
PROVIDERS: ATTEND Emergency Medicine
DX: I51.7 Cardiomegaly (principal); I35.1 Nonrheumatic aortic (valve) insufficiency; I35.0 Nonrheumatic aortic (valve) stenosis
CPT/HCPCS: 93306